=== PATIENT | male | born 1995 | race Caucasian/White ===

== ENCOUNTER 2019-02-01 12:33 | Emergency (ER) | payer OTHER ==
[~2019-02-01] VITALS: Ht 188 cm; Wt 111.6 kg
[~2019-02-01 12:33] MED LIST: FLEXERIL PO; HYDROCODONE-APA1 TA1 PO; LIORESAL 10 MG10 MG PO; NOHOMEMEDICATIONS; NORCO 5-325 TA1 EACH PO; STRATTERA25 MG PO
[2019-02-01] MEDS ORDERED: NOHOMEMEDICATIONS (13:00)
[2019-02-01 14:00] LABS: URINE BILIRUBIN NEGATIVE (Negative); URINE BLOOD NEGATIVE (Negative); URINE CLARITY CLEAR; URINE COLOR YELLOW; URINE GLUCOSE-RANDOM NEGATIVE (Negative); URINE KETONES NEGATIVE (Negative); URINE LEUKOCYTES-REFLEX NEGATIVE (Negative); URINE NITRITE-REFLEX NEGATIVE (Negative); URINE PROTEIN NEGATIVE (Negative); URINE UROBILINOGEN 0.2 E.U./dl (0.2-1.0)
[2019-02-01] MEDS ORDERED: LIDODERM1 EACH TRANSDERM (14:12)
[2019-02-01] MEDS ORDERED: NAPROSYN500 MG PO (14:12)
[2019-02-01 14:33] VITALS: BP 145/98
== END 2019-02-01 14:34 | disposition home or self-care (01) ==
LOC: M.ERS 12:33
PROVIDERS: Physician Assistant
DX: M54.6 Pain in thoracic spine (principal); F90.9 Attention-deficit hyperactivity disorder, unspecified type; Z90.89 Acquired absence of other organs; Z87.442 Personal history of urinary calculi; Z98.890 Other specified postprocedural states

== ENCOUNTER 2020-07-26 18:51 | Emergency (ER) | payer OTHER ==
[~2020-07-26] VITALS: Ht 185.4 cm; Wt 113.4 kg
[~2020-07-26 18:51] MED LIST changes: +LIDODERM1 EACH TRANSDERM; +NAPROSYN500 MG PO
[2020-07-26 19:19] LABS: URINE BILIRUBIN NEGATIVE (Negative); URINE BLOOD NEGATIVE (Negative); URINE CLARITY CLEAR; URINE COLOR YELLOW; URINE GLUCOSE-RANDOM NEGATIVE (Negative); URINE KETONES NEGATIVE (Negative); URINE LEUKOCYTES-REFLEX NEGATIVE (Negative); URINE NITRITE-REFLEX NEGATIVE (Negative); URINE PROTEIN NEGATIVE (Negative); URINE SPECIFIC GRAVITY 1.025 (1.005-1.030); URINE UROBILINOGEN 0.2 E.U./dl (0.2-1.0)
[2020-07-26] MEDS ORDERED: AUGMENTIN 500-1 EACH PO (20:33)
[2020-07-26 21:11] VITALS: BP 117/68
== END 2020-07-26 21:12 | disposition home or self-care (01) ==
LOC: M.ERS 18:51
PROVIDERS: Personal Emergency Response Attendant
DX: N49.2 Inflammatory disorders of scrotum (principal); F90.9 Attention-deficit hyperactivity disorder, unspecified type; Z90.89 Acquired absence of other organs; Z87.442 Personal history of urinary calculi